=== PATIENT | male | born 1980 | race Two or more races ===

== ENCOUNTER → 2021-01-09 | Outpatient (CLI) | payer OTHER ==
--- NOTE | 2021-01-09 15:59 | KCIC ---
EXAM: Brain MRI without contrast. HISTORY: Migraine. TECHNIQUE: Multiplanar, multisequence magnetic resonance imaging of the brain was performed without c ontrast. COMPARISON: None. FINDINGS: There is no restricted diffusion to suggest acute or subacute infarction. There is no susce ptibility effect to suggest hemorrhage. There is no mass effect or midline shift. There is no hydroce phalus. No suspicious white matter lesion is seen. The orbits are unremarkable. There is a tiny left maxillary sinus mucous retention cyst. The mastoid air cells are clear. There are normal flow voids w ithin the cerebral vessels. There is no suspicious calvarial lesion. IMPRESSION: No acute intracranial finding. Electronically signed by: Ana Gurrola MD (01/09/2021 3:57 PM) [id number]
== END ==
LOC: KCIC MRI 14:37
PROVIDERS: ATTEND Nurse Practitioner Family
DX: G43.009 Migraine without aura, not intractable, without status migrainosus (principal); G47.19 Other hypersomnia
CPT/HCPCS: 70551